=== PATIENT | female | born 1965 | race Caucasian/White ===

== ENCOUNTER → 2017-03-27 | Day surgery (SDC) | payer BC ==
[~2017-03-27] MED LIST: BUPIVACAINE HCL PF 0.25% 30 ML VIAL ONE; MIDAZOLAM HCL 2 MG/2 ML VIAL ONE; NEOMYCIN/POLYMYXIN/BACITRACIN OINT 15 GM TUBE ONE; ONDANSETRON HCL 4 MG/2 ML VIAL IV PUSH ONE; PROPOFOL 500 MG/50 ML BTL IV ONE; ceFAZolin 2 GM PREMIX 50 ML ONE
--- NOTE | 2017-03-28 07:02 | MP ---
cc: MARSHA SANDOVAL DPM DATE OF SURGERY 03/27/2017 PREOPERATIVE DIAGNOSIS Chronic right hallux ingrown painful nail. POSTOPERATIVE DIAGNOSIS Chronic right hallux ingrown painful nail. PROCEDURES PERFORMED Surgical excisional matrixectomy of right hallux. SPECIMEN None ESTIMATED BLOOD LOSS Less than 30 mL ANESTHESIA TIVA with local 10 cc of 0.25% Marcaine plain COMPLICATIONS None PROCEDURE IN DETAIL Under mild sedation, the patient was brought into the operating room, placed on the operating table in the supine position. Following the induction of anesthesia, local anesthesia was obtained about the patient's right hallux utilizing standard block fashion. The patient's right foot was then scrubbed, prepped and draped in the usual aseptic fashion. The foot was elevated, examined and a [place] drain was wrapped around the base of the right hallux. The incurvated nail was identified of the right hallux and utilizing a [place] elevator, it was avulsed from its most proximal origin just beneath the eponychium of the proximal nail fold. Next, a linear incision was made at the corner of each medial and lateral nail fold allowing for sharp dissection and a deep dermal dissection took place, then progress proximally excising the germinal cells of the nail matrix down to the level of the periosteum. Once the cells were removed, the wound was flushed with copious amounts of normal saline. Further Bovie ligation took place. Skin edges were then coapted utilizing Vicryl and nylon. Upon relieving the tourniquet, there was a prompt hyperemic response to all digits without any delayed capillary fill time. A bulky bandage was placed. The patient transferred from OR to PACU with all vital signs stable. The patient will weight bear to tolerance within a postoperative shoe. The patient will follow up within 3-5 days. NATHAN Perez/SUSIE /3:45 PM /6:55 AM
== END | disposition home or self-care (01) ==
LOC: ESDC 12:51
PROVIDERS: ATTEND Podiatrist Foot & Ankle Surgery
DX: L60.0 Ingrowing nail (principal)
CPT/HCPCS: 00400; 11750; J0690; J2250; J2405; J3010